=== PATIENT | female | born 1955 | race Caucasian/White ===

== ENCOUNTER 2017-09-15 08:35 | Emergency (ER) | payer OTHER ==
[~2017-09-15] VITALS: Ht 157.5 cm; Wt 74.8 kg
[~2017-09-15 08:35] MED LIST: ALEVE220 MG PO; ALPRAZOLAM 0.50.5 M1 PO; CYMBALTA60 MG PO; MOBIC15 MG PO; RITALIN20 MG PO
[2017-09-15 08:59] LABS: URINE BILIRUBIN NEGATIVE (Negative); URINE BLOOD 3+ (Negative); URINE CLARITY CLOUDY; URINE COLOR YELLOW; URINE GLUCOSE-RANDOM* NEGATIVE (Negative); URINE KETONES NEGATIVE (Negative); URINE LEUKOCYTES-REFLEX 2+ (Negative); URINE NITRITE-REFLEX NEGATIVE (Negative); URINE PROTEIN (DIPSTICK) 1+ (Negative); URINE SPECIFIC GRAVITY >= 1.030 (1.005-1.035); URINE UROBILINOGEN 0.2 E.U./dl (0.2-1.0)
[2017-09-15 09:09] LABS: CASTS None Seen /LPF (None Seen); CRYSTALS None Seen /LPF (None Seen); SQUAMOUS 4-10 Moderate /LPF (0-3); URINE WBC-REFLEX >25 Many /HPF (0-5)
[2017-09-15 09:13] LABS: BACTERIA-REFLEX >30 Many /HPF (None Seen)
[2017-09-15 09:14] LABS: YEAST-REFLEX Present (None Seen)
[2017-09-15] MEDS ORDERED: PYRIDIUM200 MG PO (09:14)
[2017-09-15] MEDS ORDERED: MACROBID 100 M100 M1 PO (09:14)
== END 2017-09-15 09:28 | disposition home or self-care (01) ==
LOC: ER 08:35
PROVIDERS: Emergency Medicine
DX: N39.0 Urinary tract infection, site not specified (principal); M79.7 Fibromyalgia; Z88.8 Allergy status to other drugs, medicaments and biological substances